=== PATIENT | male | born 1955 | race Caucasian/White ===

== ENCOUNTER 2021-01-20 12:10 | Emergency (ER) | payer OTHER ==
[2021-01-20 12:39] LABS: BASOPHIL 0.7 % (0-2); EOSINOPHIL 0 % (0-7); HCT 48.6 % (42.0-52.0); HGB 14.1 g/dl (13.2-18.0); LYMPHOCYTE 13.3 % (15-48); MCV 99.8 fL (78.0-100.0); MONOCYTE 5.9 % (0-12); MPV 10.7 fL (6.0-9.5); NRBC 1.4; PLT 180 K/uL (150-400); RBC 4.87 M/uL (4.70-6.00); RDW 12.8 % (11.5-14.0)
[2021-01-20 12:40] LABS: WBC 21.9 K/uL (4.0-10.5)
== END 2021-01-20 13:17 | disposition expired ==
LOC: FER 12:10
PROVIDERS: Internal Medicine
DX: I46.9 Cardiac arrest, cause unspecified (principal); U07.1 COVID-19; E11.9 Type 2 diabetes mellitus without complications; I10 Essential (primary) hypertension; J45.909 Unspecified asthma, uncomplicated
CPT/HCPCS: 36415; 36600; 82553; 82803; 84484; 85025; 92950; 94002; J0171; J0461; J0610; J7030; J7050; J7070